=== PATIENT | female | born 1940 | race Caucasian/White ===

== ENCOUNTER → 2018-08-11 | Outpatient (CLI) | payer MEDICARE, OTHER | END | disposition home or self-care (01) | LOC: CFH 14:53 | PROVIDERS: ATTEND Internal Medicine Cardiovascular Disease | DX: I08.3 Combined rheumatic disorders of mitral, aortic and tricuspid valves (principal); I10 Essential (primary) hypertension | CPT/HCPCS: 93306 ==

== ENCOUNTER 2018-08-22 04:23 | Inpatient (IN) | payer MEDICARE, OTHER ==
[2018-08-21 14:43] LABS: MICROSCOPIC INDICATED
[2018-08-21 14:53] LABS: BASOPHILS # (AUTO) 0.04 x10^3/uL (0-0.1); BASOPHILS % (AUTO) 1 % (0-1); EOSINOPHILS # (AUTO) 0.13 x10^3/uL (0-0.4); EOSINOPHILS % (AUTO) 2 % (1-7); LYMPHOCYTES % (AUTO) 26 % (22-44); MD NO; MEAN CORPUSCULAR HEMOGLOBIN 31.8 pg (27.0-34.8); MEAN CORPUSCULAR VOLUME 93.4 fL (80-100); MEAN PLATELET VOLUME 7.4 fL (7.4-10.4); MONOCYTES # (AUTO) 0.47 x10^3/uL (0.2-0.8); MONOCYTES % (AUTO) 8 % (2-9); NEUTROPHILS # (AUTO) 3.74 x10^3/uL (1.8-6.8); NEUTROPHILS % (AUTO) 64 % (42-75); PLATELET COUNT 303 x10^3/uL (130-400); RED BLOOD COUNT 4.47 x10^6/uL (3.82-5.3); RED CELL DISTRIBUTION WIDTH 14.3 % (9.6-15.2)
[2018-08-21 15:02] LABS: INTERNATIONAL NORMALIZED RATIO 1.03 (0.93-1.1); PROTHROMBIN TIME 10.9 Seconds (9.6-11.5)
[2018-08-21 15:04] LABS: ALBUMIN 3.8 g/dL (3.4-5.0); ANION GAP 3 mmol/L (5-15); CALCIUM 9.6 mg/dL (8.5-10.1); CHLORIDE 101 mmol/L (98-107)
[2018-08-21 15:08] LABS: ALANINE AMINOTRANSFERASE 26 U/L (12-78); ALKALINE PHOSPHATASE 91 U/L (45-117); BILIRUBIN,TOTAL 0.5 mg/dL (0.2-1.0); CREATININE 1.46 mg/dL (0.55-1.02); TOTAL PROTEIN 8.2 g/dL (6.4-8.2)
[2018-08-21 16:06] LABS: HEMOGLOBIN A1C 5.7 % (4.2-6.3)
[~2018-08-22] VITALS: Ht 162.6 cm; Wt 54.2 kg
[~2018-08-22 04:23] MED LIST: AMIO200T42 PO; CARV12.52 PO; CYAN10005 PO; FURO20TA3 PO; LEVO50TA5 PO; MEDR2.5T30 PO; RAMI10CA59 PO; SPIR25TA5 PO
[2018-08-22] MEDS ORDERED: ALBUMIN HUMAN 5% 500 ML IV PRN (04:30)
[2018-08-22 04:47] VITALS: BP_SYST 118; BP_SYST 129; BP_DIAS 77; BP_DIAS 78
[2018-08-22] MEDS ORDERED: CHLORHEXIDINE 15 ML UDC MM SCH (05:00)
[2018-08-22] MEDS ORDERED: INSULIN LISPRO 100 UNITS/ML, PEN SQ-INSULIN SCH ×2 (05:00→16:00)
[2018-08-22] MEDS ORDERED: DO NOT GIVE MC SCH (05:00)
[2018-08-22] MEDS: MUPIROCIN OINT 2%, 22GM TP SCH ×2 (05:29→21:16)
[2018-08-22 06:56] VITALS: BP 149/78
[2018-08-22] MEDS ORDERED: MIDAZOLAM 10MG/2 ML ONE (07:04)
[2018-08-22] MEDS ORDERED: FENTANYL PF 250 MCG/5ML ONE ×4 (07:04)
[2018-08-22] MEDS ORDERED: VANCOMYCIN 900 MG in SODIUM CHLORIDE 0.9% 100 ML IV PRN (07:30)
[2018-08-22] MEDS ORDERED: CEFUROXIME 1.5 GM in SODIUM CHLORIDE 0.9% 50 ML IVPB PRN (07:30)
[2018-08-22] MEDS ORDERED: POTASSIUM CHLORIDE 80 MEQ, SODIUM BICARBONATE 8.4% 10 MEQ, MAGNESIUM SULFATE 0.5 GM, LI... IV PRN (07:30)
[2018-08-22] MEDS ORDERED: MANNITOL PMX 20% 500 ML IVPB PRN (07:30)
[2018-08-22] MEDS ORDERED: DEXMEDETOMIDINE 200 MCG in SODIUM CHLORIDE 0.9% 48 ML IV SCH (07:30)
[2018-08-22] MEDS ORDERED: PHENYLEPHRINE 10 MG in SODIUM CHLORIDE 0.9% 249 ML IV PRN ×2 (07:30→12:18)
[2018-08-22] MEDS ORDERED: REGULAR INSULIN 62.5 UNITS in SODIUM CHLORIDE 0.9% 249.375 ML IV PRN ×2 (07:30→12:18)
[2018-08-22] MEDS ORDERED: EPINEPHRINE 2 MG in SODIUM CHLORIDE 0.9% 248 ML IV SCH (07:30)
[2018-08-22] MEDS: SODIUM CHLORIDE FLUSH 10ML SYR IVF SCH ×3 (09:00→21:12)
[2018-08-22] MEDS ORDERED: AMINOCAPROIC ACID 250 MG/ML, 20ML ONE ×2 (11:02)
[2018-08-22] MEDS ORDERED: ROCURONIUM 10MG/ML,5ML ONE ×2 (11:03)
[2018-08-22] MEDS ORDERED: PROTAMINE SULFATE 10 MG/ML, 25ML ONE (11:03)
[2018-08-22] MEDS ORDERED: PROPOFOL 10 MG/ML, 20ML ONE (11:03)
[2018-08-22] MEDS ORDERED: DEXMEDETOMIDINE 200 MCG in SODIUM CHLORIDE 0.9% 48 ML IV PRN (12:18)
[2018-08-22] MEDS ORDERED: NITROGLYCERIN/D5W PMX 250 ML IV PRN (12:18)
[2018-08-22] MEDS ORDERED: VASOPRESSIN 50 UNIT in SODIUM CHLORIDE 0.9% 247.5 ML IV PRN (12:18)
[2018-08-22] MEDS ORDERED: DOBUTAMINE 250 MG in SODIUM CHLORIDE 0.9% 230 ML IV PRN (12:18)
[2018-08-22] MEDS ORDERED: SODIUM CHLORIDE 0.9% 1,000 ML IV PRN (12:18)
[2018-08-22] MEDS ORDERED: ACETAMINOPHEN 325 MG TABLET PO PRN (12:30)
[2018-08-22] MEDS ORDERED: MAGNESIUM SULFATE 1 GM in SODIUM CHLORIDE 0.9% 50 ML IVPB SCH (12:30)
[2018-08-22] MEDS ORDERED: ONDANSETRON 2MG/ML, 2ML IVPush PRN (12:30)
[2018-08-22] MEDS ORDERED: CEFUROXIME 1.5 GM in SODIUM CHLORIDE 0.9% 50 ML IVPB SCH (12:30)
[2018-08-22] MEDS ORDERED: PROCHLORPERAZINE 5 MG/ML, 2ML IVPush PRN (12:30)
[2018-08-22] MEDS ORDERED: DEXTROSE 50%, 50ML SYRINGE IVPush PRN (12:30)
[2018-08-22] MEDS ORDERED: GLUCAGON 1 MG IM PRN (12:30)
[2018-08-22] MEDS ORDERED: SODIUM BICARB 8.4%, 50ML SYRINGE IV PRN (12:30)
[2018-08-22] MEDS ORDERED: ACETAMINOPHEN 650 MG SUPP PR PRN (12:30)
[2018-08-22] MEDS ORDERED: BISACODYL 10 MG SUPP PR PRN (12:30)
[2018-08-22] MEDS ORDERED: morphine SULFATE 10 MG/ML, 1ML IVPush PRN (12:30)
[2018-08-22] MEDS ORDERED: FENTANYL PF 100 MCG/2ML IVPush PRN (12:30)
[2018-08-22] MEDS ORDERED: MIDAZOLAM 1 MG/ML, 5ML IVPush PRN (12:30)
[2018-08-22] MEDS ORDERED: DEXTROSE 4 GM TAB.CHEW PO PRN (12:30)
[2018-08-22] MEDS ORDERED: EPINEPHRINE 2 MG in SODIUM CHLORIDE 0.9% 248 ML IV PRN (12:30)
[2018-08-22] MEDS ORDERED: HEPARIN 1,000 UNITS/ML, 30ML ONE (12:40)
[2018-08-22] MEDS ORDERED: SODIUM BICARBONATE 1 MEQ/ML, 50ML VIAL ONE (12:41)
[2018-08-22] MEDS ORDERED: methylPREDNISolone SOD SUCC 125 MG/2 ML ONE (12:41)
[2018-08-22] MEDS ORDERED: ALBUMIN HUMAN 25% 50 ML ONE (12:42)
[2018-08-22 13:01] LABS: GLUCOSE BY BLOOD GAS ANALYZER 138 mg/dL (70-110); HEMOGLOBIN BY BLOOD GAS ANALYZ 11.4 g/dL (14.0-18.0); POTASSIUM BY BLOOD GAS ANALYZR 4.5 mmol/L (3.6-5.5)
[2018-08-22 13:13] LABS: INTERNATIONAL NORMALIZED RATIO 1.32 (0.93-1.1); PROTHROMBIN TIME 13.8 Seconds (9.6-11.5)
[2018-08-22] MEDS: LACTATED RINGERS 1,000 ML IV PRN ×3 (13:18→17:56)
[2018-08-22] MEDS: DOCUSATE 100 MG CAPSULE PO SCH ×2 (13:19→21:16)
[2018-08-22] MEDS: KSCALE TO 4.5 IV SCH ×2 (13:26→19:30)
[2018-08-22] MEDS: OXYcodone IR 5MG TABLET PO PRN (17:27)
[2018-08-22] MEDS ORDERED: LACTATED RINGERS 1,000 ML IV PRN (18:00)
[2018-08-22] MEDS ORDERED: ALBUMIN HUMAN 5% 500 ML IV ONE (18:00)
[2018-08-22] MEDS: HYDROcodone/APAP 10/325 MG TABLET PO PRN (19:50)
[2018-08-22] MEDS: VANCOMYCIN 800 MG in SODIUM CHLORIDE 0.9% 250 ML IVPB SCH (19:50)
[2018-08-22] MEDS: MUPIROCIN OINT 2%, 22GM NAS SCH (21:00)
[2018-08-22] MEDS: INSULIN LISPRO 100 UNITS/ML, PEN SQ-INSULIN SCH (21:11)
[2018-08-22] MEDS: CEFUROXIME 1.5 GM in SODIUM CHLORIDE 0.9% 50 ML IVPB SCH (21:39)
[2018-08-23] MEDS: OXYcodone IR 5MG TABLET PO PRN ×6 (00:10→20:49)
[2018-08-23] MEDS: KSCALE TO 4.5 IV SCH ×2 (01:30→07:58)
[2018-08-23] MEDS: INSULIN LISPRO 100 UNITS/ML, PEN SQ-INSULIN SCH ×2 (03:00→08:08)
[2018-08-23 04:21] LABS: INTERNATIONAL NORMALIZED RATIO 1.13 (0.93-1.1); PROTHROMBIN TIME 11.9 Seconds (9.6-11.5)
[2018-08-23 04:22] LABS: ANION GAP 9 mmol/L (5-15); CALCIUM 7.9 mg/dL (8.5-10.1); CHLORIDE 108 mmol/L (98-107); CREATININE 1.09 mg/dL (0.55-1.02)
[2018-08-23 04:24] LABS: BASOPHILS # (AUTO) 0.04 x10^3/uL (0-0.1); BASOPHILS % (AUTO) 1 % (0-1); EOSINOPHILS % (AUTO) 0 % (1-7); LYMPHOCYTES # (AUTO) 0.48 x10^3/uL (1-3.4); LYMPHOCYTES % (AUTO) 6 % (22-44); MD NO; MEAN CORPUSCULAR HEMOGLOBIN 32.3 pg (27.0-34.8); MEAN CORPUSCULAR HGB CONC 34.5 g/dL (32.4-35.8); MEAN CORPUSCULAR VOLUME 93.6 fL (80-100); MONOCYTES # (AUTO) 0.68 x10^3/uL (0.2-0.8); MONOCYTES % (AUTO) 8 % (2-9); NEUTROPHILS # (AUTO) 7.32 x10^3/uL (1.8-6.8); NEUTROPHILS % (AUTO) 86 % (42-75); PLATELET COUNT 136 x10^3/uL (130-400); RED BLOOD COUNT 2.87 x10^6/uL (3.82-5.3)
[2018-08-23] MEDS: DOCUSATE 100 MG CAPSULE PO SCH ×2 (08:07→20:48)
[2018-08-23] MEDS: CEFUROXIME 1.5 GM in SODIUM CHLORIDE 0.9% 50 ML IVPB SCH (08:07)
[2018-08-23] MEDS: ASPIRIN 81 MG TABLET EC PO SCH (08:07)
[2018-08-23] MEDS: MUPIROCIN OINT 2%, 22GM NAS SCH ×2 (08:07→23:08)
[2018-08-23] MEDS: SODIUM CHLORIDE FLUSH 10ML SYR IVF SCH ×5 (08:08→20:57)
[2018-08-23] MEDS ORDERED: DIAZEPAM 5 MG TABLET ONE (09:15)
[2018-08-23] MEDS ORDERED: FUROSEMIDE 20 MG/2 ML ONE (09:16)
[2018-08-23] MEDS: VANCOMYCIN 800 MG in SODIUM CHLORIDE 0.9% 250 ML IVPB SCH (09:20)
[2018-08-23] MEDS ORDERED: FUROSEMIDE 20 MG/2 ML IV ONE (09:30)
[2018-08-23] MEDS ORDERED: DIAZEPAM 5 MG/ML, 2ML IV PRN (09:30)
[2018-08-23] MEDS: AMIODARONE 200 MG TABLET PO SCH (11:12)
[2018-08-23] MEDS: LEVOTHYROXINE 50 MCG TABLET PO SCH (11:12)
[2018-08-23 12:50] VITALS: BP 166/91
[2018-08-23 15:00] VITALS: BP 161/96
[2018-08-23] MEDS: DIAZEPAM 5 MG TABLET PO PRN ×2 (16:55→21:14)
[2018-08-23] MEDS: CARVEDILOL 3.125 MG TABLET PO SCH (18:00)
[2018-08-23 18:10] VITALS: BP 99/60
[2018-08-23 20:37] VITALS: BP 128/80
[2018-08-23] MEDS: CHLORHEXIDINE 15 ML UDC MM SCH (20:48)
[2018-08-24] MEDS: OXYcodone IR 5MG TABLET PO PRN ×3 (00:20→21:27)
[2018-08-24] MEDS: DIAZEPAM 5 MG TABLET PO PRN ×3 (00:20→21:27)
[2018-08-24 01:04] VITALS: BP 123/73
[2018-08-24] MEDS: CARVEDILOL 3.125 MG TABLET PO SCH ×2 (06:21→18:46)
[2018-08-24 06:38] LABS: BASOPHILS % (AUTO) 0 % (0-1); EOSINOPHILS # (AUTO) 0.02 x10^3/uL (0-0.4); EOSINOPHILS % (AUTO) 0 % (1-7); LYMPHOCYTES # (AUTO) 1.13 x10^3/uL (1-3.4); LYMPHOCYTES % (AUTO) 11 % (22-44); MD NO; MEAN CORPUSCULAR HEMOGLOBIN 31.6 pg (27.0-34.8); MEAN CORPUSCULAR HGB CONC 33.8 g/dL (32.4-35.8); MEAN CORPUSCULAR VOLUME 93.6 fL (80-100); MEAN PLATELET VOLUME 7.5 fL (7.4-10.4); MONOCYTES # (AUTO) 0.81 x10^3/uL (0.2-0.8); MONOCYTES % (AUTO) 8 % (2-9); NEUTROPHILS % (AUTO) 82 % (42-75); PLATELET COUNT 127 x10^3/uL (130-400); RED BLOOD COUNT 2.99 x10^6/uL (3.82-5.3)
[2018-08-24 06:44] LABS: INTERNATIONAL NORMALIZED RATIO 1.08 (0.93-1.1); PROTHROMBIN TIME 11.4 Seconds (9.6-11.5)
[2018-08-24 06:46] LABS: ANION GAP 7 mmol/L (5-15); CALCIUM 7.9 mg/dL (8.5-10.1); CHLORIDE 103 mmol/L (98-107); CREATININE 0.97 mg/dL (0.55-1.02)
[2018-08-24 08:15] VITALS: BP 101/67
[2018-08-24] MEDS: SODIUM CHLORIDE FLUSH 10ML SYR IVF SCH ×6 (09:00→21:32)
[2018-08-24] MEDS: CHLORHEXIDINE 15 ML UDC MM SCH ×2 (09:02→21:26)
[2018-08-24] MEDS: POTASSIUM CHLORIDE 20 MEQ TAB.ER.PRT PO SCH (09:02)
[2018-08-24] MEDS: DOCUSATE 100 MG CAPSULE PO SCH ×2 (09:02→21:27)
[2018-08-24] MEDS: AMIODARONE 200 MG TABLET PO SCH (09:03)
[2018-08-24] MEDS: ASPIRIN 81 MG TABLET EC PO SCH (09:03)
[2018-08-24] MEDS: LEVOTHYROXINE 50 MCG TABLET PO SCH (09:03)
[2018-08-24] MEDS: FUROSEMIDE 40 MG/4 ML IV SCH (09:04)
[2018-08-24] MEDS: MUPIROCIN OINT 2%, 22GM NAS SCH ×2 (09:04→21:27)
[2018-08-24] MEDS: MEDROXYPROGESTERONE ACETATE 2.5 MG TABLET PO SCH (09:09)
[2018-08-24] MEDS: INSULIN REGULAR 100 UNITS/ML, 3ML VIAL IVPush PRN ×3 (09:18→16:32)
[2018-08-24 14:13] VITALS: BP 156/92
[2018-08-24 19:24] VITALS: BP 136/84
[2018-08-25] MEDS: OXYcodone IR 5MG TABLET PO PRN ×4 (01:07→21:06)
[2018-08-25 03:23] VITALS: BP 100/66
[2018-08-25] MEDS: DIAZEPAM 5 MG TABLET PO PRN ×2 (06:14→21:06)
[2018-08-25 06:50] LABS: BASOPHILS # (AUTO) 0.03 x10^3/uL (0-0.1); BASOPHILS % (AUTO) 0 % (0-1); EOSINOPHILS # (AUTO) 0.12 x10^3/uL (0-0.4); EOSINOPHILS % (AUTO) 2 % (1-7); LYMPHOCYTES # (AUTO) 1.54 x10^3/uL (1-3.4); LYMPHOCYTES % (AUTO) 19 % (22-44); MD NO; MEAN CORPUSCULAR HEMOGLOBIN 32.4 pg (27.0-34.8); MEAN CORPUSCULAR HGB CONC 34.8 g/dL (32.4-35.8); MEAN CORPUSCULAR VOLUME 93.1 fL (80-100); MEAN PLATELET VOLUME 7.6 fL (7.4-10.4); MONOCYTES # (AUTO) 0.65 x10^3/uL (0.2-0.8); MONOCYTES % (AUTO) 8 % (2-9); NEUTROPHILS # (AUTO) 5.91 x10^3/uL (1.8-6.8); NEUTROPHILS % (AUTO) 72 % (42-75); PLATELET COUNT 130 x10^3/uL (130-400); RED BLOOD COUNT 2.93 x10^6/uL (3.82-5.3); RED CELL DISTRIBUTION WIDTH 15.1 % (9.6-15.2)
[2018-08-25 06:57] LABS: ANION GAP 5 mmol/L (5-15); CALCIUM 8.3 mg/dL (8.5-10.1); CHLORIDE 103 mmol/L (98-107)
[2018-08-25 08:08] VITALS: BP 111/73
[2018-08-25] MEDS: CHLORHEXIDINE 15 ML UDC MM SCH (08:34)
[2018-08-25] MEDS: ASPIRIN 81 MG TABLET EC PO SCH (08:35)
[2018-08-25] MEDS: MEDROXYPROGESTERONE ACETATE 2.5 MG TABLET PO SCH (08:35)
[2018-08-25] MEDS: MUPIROCIN OINT 2%, 22GM NAS SCH ×2 (08:35→21:06)
[2018-08-25] MEDS: DOCUSATE 100 MG CAPSULE PO SCH ×2 (08:35→21:06)
[2018-08-25] MEDS: BISACODYL 5 MG EC TABLET PO PRN (08:35)
[2018-08-25] MEDS: FUROSEMIDE 40 MG/4 ML IV SCH (08:36)
[2018-08-25] MEDS: CLOPIDOGREL 75 MG TABLET PO SCH (08:36)
[2018-08-25] MEDS: POTASSIUM CHLORIDE 20 MEQ TAB.ER.PRT PO SCH (08:36)
[2018-08-25] MEDS: LEVOTHYROXINE 50 MCG TABLET PO SCH (08:36)
[2018-08-25] MEDS: AMIODARONE 200 MG TABLET PO SCH (08:36)
[2018-08-25] MEDS: CARVEDILOL 3.125 MG TABLET PO SCH ×2 (08:36→17:29)
[2018-08-25] MEDS: INSULIN REGULAR 100 UNITS/ML, 3ML VIAL IVPush PRN ×2 (08:37→11:37)
[2018-08-25] MEDS: SODIUM CHLORIDE FLUSH 10ML SYR IVF SCH ×6 (08:42→21:05)
[2018-08-25 12:23] VITALS: BP 97/64
[2018-08-25 18:29] VITALS: BP 94/57
[2018-08-26 00:21] VITALS: BP 94/60
[2018-08-26] MEDS: DIAZEPAM 5 MG TABLET PO PRN ×2 (02:43→17:15)
[2018-08-26] MEDS: OXYcodone IR 5MG TABLET PO PRN (02:43)
[2018-08-26] MEDS: CARVEDILOL 3.125 MG TABLET PO SCH ×2 (05:15→20:26)
[2018-08-26 05:52] LABS: BASOPHILS # (AUTO) 0.06 x10^3/uL (0-0.1); BASOPHILS % (AUTO) 1 % (0-1); EOSINOPHILS # (AUTO) 0.16 x10^3/uL (0-0.4); EOSINOPHILS % (AUTO) 2 % (1-7); LYMPHOCYTES # (AUTO) 1.54 x10^3/uL (1-3.4); LYMPHOCYTES % (AUTO) 23 % (22-44); MD NO; MEAN CORPUSCULAR HEMOGLOBIN 32.1 pg (27.0-34.8); MEAN CORPUSCULAR HGB CONC 34.2 g/dL (32.4-35.8); MEAN CORPUSCULAR VOLUME 93.9 fL (80-100); MEAN PLATELET VOLUME 7.7 fL (7.4-10.4); MONOCYTES # (AUTO) 0.65 x10^3/uL (0.2-0.8); MONOCYTES % (AUTO) 10 % (2-9); NEUTROPHILS # (AUTO) 4.35 x10^3/uL (1.8-6.8); NEUTROPHILS % (AUTO) 64 % (42-75); PLATELET COUNT 136 x10^3/uL (130-400); RED BLOOD COUNT 2.77 x10^6/uL (3.82-5.3); RED CELL DISTRIBUTION WIDTH 14.4 % (9.6-15.2)
[2018-08-26 05:58] LABS: ANION GAP 8 mmol/L (5-15); CALCIUM 8.3 mg/dL (8.5-10.1); CHLORIDE 102 mmol/L (98-107); CREATININE 0.89 mg/dL (0.55-1.02)
[2018-08-26 07:58] VITALS: BP 114/73
[2018-08-26] MEDS: LEVOTHYROXINE 50 MCG TABLET PO SCH (08:39)
[2018-08-26] MEDS: CLOPIDOGREL 75 MG TABLET PO SCH (08:40)
[2018-08-26] MEDS: FUROSEMIDE 40 MG/4 ML IV SCH (08:40)
[2018-08-26] MEDS: DOCUSATE 100 MG CAPSULE PO SCH ×2 (08:40→20:21)
[2018-08-26] MEDS: MEDROXYPROGESTERONE ACETATE 2.5 MG TABLET PO SCH (08:40)
[2018-08-26] MEDS: AMIODARONE 200 MG TABLET PO SCH (08:40)
[2018-08-26] MEDS: POTASSIUM CHLORIDE 20 MEQ TAB.ER.PRT PO SCH (08:40)
[2018-08-26] MEDS: ASPIRIN 81 MG TABLET EC PO SCH (08:40)
[2018-08-26] MEDS: SODIUM CHLORIDE FLUSH 10ML SYR IVF SCH ×6 (08:41→20:56)
[2018-08-26] MEDS: MUPIROCIN OINT 2%, 22GM NAS SCH ×2 (08:41→20:21)
[2018-08-26] MEDS: MAGNESIUM HYDROXIDE 8%, 30ML UDC PO PRN (08:43)
[2018-08-26 11:26] LABS: INTERNATIONAL NORMALIZED RATIO 1.1 (0.93-1.1); PROTHROMBIN TIME 11.6 Seconds (9.6-11.5)
[2018-08-26 12:50] VITALS: BP 92/61
[2018-08-26] MEDS: BISACODYL 5 MG EC TABLET PO PRN (14:00)
[2018-08-26] MEDS: HYDROcodone/APAP 10/325 MG TABLET PO PRN ×2 (14:00→20:51)
[2018-08-26 17:20] VITALS: BP 92/51
[2018-08-26] MEDS ORDERED: WARFARIN 5 MG TABLET PO-COUM ONE (18:00)
[2018-08-26 18:41] VITALS: BP 92/60
[2018-08-26] MEDS ORDERED: SODIUM CHLORIDE 0.9% 500 ML IV ONE (21:00)
[2018-08-27 00:54] VITALS: BP 94/54
[2018-08-27 05:00] VITALS: BP 101/63
[2018-08-27] MEDS: CARVEDILOL 3.125 MG TABLET PO SCH ×2 (05:04→16:58)
[2018-08-27 05:27] LABS: BASOPHILS # (AUTO) 0.02 x10^3/uL (0-0.1); BASOPHILS % (AUTO) 0 % (0-1); EOSINOPHILS # (AUTO) 0.22 x10^3/uL (0-0.4); EOSINOPHILS % (AUTO) 4 % (1-7); LYMPHOCYTES # (AUTO) 1.46 x10^3/uL (1-3.4); LYMPHOCYTES % (AUTO) 24 % (22-44); MD NO; MEAN CORPUSCULAR HEMOGLOBIN 32.2 pg (27.0-34.8); MEAN CORPUSCULAR HGB CONC 34.3 g/dL (32.4-35.8); MEAN CORPUSCULAR VOLUME 93.8 fL (80-100); MEAN PLATELET VOLUME 7.3 fL (7.4-10.4); MONOCYTES # (AUTO) 0.67 x10^3/uL (0.2-0.8); MONOCYTES % (AUTO) 11 % (2-9); NEUTROPHILS # (AUTO) 3.71 x10^3/uL (1.8-6.8); NEUTROPHILS % (AUTO) 61 % (42-75); PLATELET COUNT 162 x10^3/uL (130-400); RED BLOOD COUNT 2.68 x10^6/uL (3.82-5.3)
[2018-08-27 05:37] LABS: INTERNATIONAL NORMALIZED RATIO 1.15 (0.93-1.1); PROTHROMBIN TIME 12.1 Seconds (9.6-11.5)
[2018-08-27 05:41] LABS: ANION GAP 6 mmol/L (5-15); CHLORIDE 103 mmol/L (98-107); CREATININE 0.87 mg/dL (0.55-1.02)
[2018-08-27] MEDS: HYDROcodone/APAP 5/325 TABLET PO PRN ×4 (05:55→21:12)
[2018-08-27 07:26] VITALS: BP 107/69
[2018-08-27] MEDS: POTASSIUM CHLORIDE 20 MEQ TAB.ER.PRT PO SCH (08:35)
[2018-08-27] MEDS: AMIODARONE 200 MG TABLET PO SCH (08:35)
[2018-08-27] MEDS: MEDROXYPROGESTERONE ACETATE 2.5 MG TABLET PO SCH (08:35)
[2018-08-27] MEDS: ASPIRIN 81 MG TABLET EC PO SCH (08:35)
[2018-08-27] MEDS: DOCUSATE 100 MG CAPSULE PO SCH ×2 (08:35→19:57)
[2018-08-27] MEDS: CLOPIDOGREL 75 MG TABLET PO SCH (08:35)
[2018-08-27] MEDS: SODIUM CHLORIDE FLUSH 10ML SYR IVF SCH ×6 (08:36→19:58)
[2018-08-27] MEDS: LEVOTHYROXINE 50 MCG TABLET PO SCH (08:36)
[2018-08-27] MEDS: FUROSEMIDE 40 MG/4 ML IV SCH (08:36)
[2018-08-27] MEDS: MUPIROCIN OINT 2%, 22GM NAS SCH (09:55)
[2018-08-27 12:23] VITALS: BP 130/79
[2018-08-27] MEDS ORDERED: WARFARIN 5 MG TABLET PO-COUM SCH (18:00)
[2018-08-27 20:00] VITALS: BP 97/57
[2018-08-28 01:52] VITALS: BP 119/75
[2018-08-28] MEDS: HYDROcodone/APAP 5/325 TABLET PO PRN ×3 (04:10→19:50)
[2018-08-28 05:10] VITALS: BP 106/62
[2018-08-28] MEDS: CARVEDILOL 3.125 MG TABLET PO SCH ×2 (05:12→18:19)
[2018-08-28 05:43] LABS: INTERNATIONAL NORMALIZED RATIO 1.79 (0.93-1.1); PROTHROMBIN TIME 18.6 Seconds (9.6-11.5)
[2018-08-28 05:46] LABS: ANION GAP 5 mmol/L (5-15); CALCIUM 8.4 mg/dL (8.5-10.1); CHLORIDE 103 mmol/L (98-107); CREATININE 0.96 mg/dL (0.55-1.02)
[2018-08-28 07:20] VITALS: BP 117/64
[2018-08-28] MEDS: FUROSEMIDE 40 MG/4 ML IV SCH (08:05)
[2018-08-28] MEDS: DOCUSATE 100 MG CAPSULE PO SCH ×2 (08:06→19:50)
[2018-08-28] MEDS: SODIUM CHLORIDE FLUSH 10ML SYR IVF SCH ×6 (08:06→19:50)
[2018-08-28] MEDS: POTASSIUM CHLORIDE 20 MEQ TAB.ER.PRT PO SCH (08:06)
[2018-08-28] MEDS: LEVOTHYROXINE 50 MCG TABLET PO SCH (08:07)
[2018-08-28] MEDS: AMIODARONE 200 MG TABLET PO SCH (08:07)
[2018-08-28] MEDS: CLOPIDOGREL 75 MG TABLET PO SCH (08:07)
[2018-08-28] MEDS: MEDROXYPROGESTERONE ACETATE 2.5 MG TABLET PO SCH (08:07)
[2018-08-28] MEDS: ASPIRIN 81 MG TABLET EC PO SCH (08:07)
[2018-08-28 13:18] VITALS: BP 117/74
[2018-08-28] MEDS: DIAZEPAM 5 MG TABLET PO PRN (15:01)
[2018-08-28] MEDS ORDERED: WARFARIN 2.5 MG TABLET PO-COUM ONE (18:00)
[2018-08-28 19:20] VITALS: BP 113/78
[2018-08-28] MEDS: MAGNESIUM HYDROXIDE 8%, 30ML UDC PO PRN (22:42)
[2018-08-29 00:02] VITALS: BP 136/73
[2018-08-29] MEDS: HYDROcodone/APAP 5/325 TABLET PO PRN ×2 (01:10→08:36)
[2018-08-29 05:54] VITALS: BP 109/74
[2018-08-29] MEDS: CARVEDILOL 3.125 MG TABLET PO SCH (05:55)
[2018-08-29 06:07] LABS: INTERNATIONAL NORMALIZED RATIO 2.64 (0.93-1.1)
[2018-08-29 06:11] LABS: ANION GAP 6 mmol/L (5-15); CHLORIDE 100 mmol/L (98-107)
[2018-08-29 06:13] LABS: CREATININE 1.07 mg/dL (0.55-1.02)
[2018-08-29 07:18] VITALS: BP 112/78
[2018-08-29] MEDS: LEVOTHYROXINE 50 MCG TABLET PO SCH (08:27)
[2018-08-29] MEDS: POTASSIUM CHLORIDE 20 MEQ TAB.ER.PRT PO SCH (08:27)
[2018-08-29] MEDS: CLOPIDOGREL 75 MG TABLET PO SCH (08:27)
[2018-08-29] MEDS: ASPIRIN 81 MG TABLET EC PO SCH (08:28)
[2018-08-29] MEDS: SODIUM CHLORIDE FLUSH 10ML SYR IVF SCH ×3 (08:28)
[2018-08-29] MEDS: AMIODARONE 200 MG TABLET PO SCH (08:28)
[2018-08-29] MEDS: FUROSEMIDE 40 MG/4 ML IV SCH (08:28)
[2018-08-29] MEDS: MEDROXYPROGESTERONE ACETATE 2.5 MG TABLET PO SCH (08:28)
[2018-08-29] MEDS: DOCUSATE 100 MG CAPSULE PO SCH (08:29)
[2018-08-29] MEDS ORDERED: HYDR-3240 PO (09:11)
[2018-08-29] MEDS ORDERED: CARV3.1212 PO (09:11)
[2018-08-29] MEDS ORDERED: POTA10TA31 PO (09:11)
[2018-08-29] MEDS ORDERED: DIAZ5TAB4 PO (09:11)
[2018-08-29] MEDS ORDERED: WARF2TAB PO (09:11)
[2018-08-29] MEDS: DIAZEPAM 5 MG TABLET PO PRN (15:15)
== END 2018-08-29 15:29 | DRG 219 ==
LOC: 5SO 04:23 → CSU 08:06 → 5SO 08-23 12:43
PROVIDERS: ADMIT Thoracic Surgery (Cardiothoracic Vascular Surgery); ATTEND Thoracic Surgery (Cardiothoracic Vascular Surgery)
PROC: 02RF08Z Replacement of Aortic Valve with Zooplastic Tissue, Open Approach (ICD-10-PCS; 2018-08-22)
PROC: 5A1221Z Performance of Cardiac Output, Continuous (ICD-10-PCS; 2018-08-22)
PROC: B246ZZ4 Ultrasonography of Right and Left Heart, Transesophageal (ICD-10-PCS; 2018-08-22)
PROC: 04Q00ZZ Repair Abdominal Aorta, Open Approach (ICD-10-PCS; 2018-08-22)
PROC: 5A1223Z Performance of Cardiac Pacing, Continuous (ICD-10-PCS; 2018-08-22)
PROC: 02L70ZK Occlusion of Left Atrial Appendage, Open Approach (ICD-10-PCS; principal; 2018-08-22 07:30)
DX: I71.2 Thoracic aortic aneurysm, without rupture (principal); N17.0 Acute kidney failure with tubular necrosis; I42.0 Dilated cardiomyopathy; I50.42 Chronic combined systolic (congestive) and diastolic (congestive) heart failure; I35.1 Nonrheumatic aortic (valve) insufficiency; E78.5 Hyperlipidemia, unspecified; F41.9 Anxiety disorder, unspecified; G89.4 Chronic pain syndrome; I11.0 Hypertensive heart disease with heart failure; M62.830 Muscle spasm of back; I48.0 Paroxysmal atrial fibrillation; R06.89 Other abnormalities of breathing; M19.90 Unspecified osteoarthritis, unspecified site; Z79.01 Long term (current) use of anticoagulants; Z85.820 Personal history of malignant melanoma of skin; Z86.79 Personal history of other diseases of the circulatory system
CPT/HCPCS: 36415; 36600; 71045; 71046; 80048; 80053; 81001; 82040; 82330; 82800; 82803; 82810; 82947; 82962; 83036; 83735; 84132; 84295; 85014; 85018; 85025; 85049; 85347; 85610; 85730; 86850; 86900; 86923; 87081; 88304; 88305; 93005; 93312; 93321; 93325; 93880; 94002; C1768; G0378; J0697; J1644; J1815; J1940; J2250; J2704; J2720; J3010; J3370; J3475; J3480; J3490; P9045; P9047; C1751; C1760; J0171; J2370; J2930; J7040; J7050; J7120

== ENCOUNTER → 2018-10-27 | Outpatient (CLI) | payer MEDICARE ==
[~2018-10-27] MED LIST changes: +CARV3.1212 PO; +DIAZ5TAB4 PO; +HYDR-3240 PO; +POTA10TA31 PO; +WARF2TAB PO
== END | disposition home or self-care (01) ==
LOC: CVU 14:21
PROVIDERS: ATTEND Internal Medicine Cardiovascular Disease
DX: I08.1 Rheumatic disorders of both mitral and tricuspid valves (principal)
CPT/HCPCS: 93306